=== PATIENT | male | born 1975 | race Caucasian/White ===

== ENCOUNTER 2017-12-18 21:24 | Emergency (ER) | payer OTHER ==
[~2017-12-18] VITALS: Ht 172.7 cm; Wt 80.7 kg
[~2017-12-18 21:24] MED LIST: IBUPROFEN 800800 MG PO; ULTRAM 50MG TAB50 MG PO
[2017-12-18] MEDS ORDERED: MEDROLDOSEPACK PO (21:47)
[2017-12-18 22:01] VITALS: BP 130/65
== END 2017-12-18 22:02 | disposition home or self-care (01) ==
LOC: M.ERS 21:24
DX: L23.7 Allergic contact dermatitis due to plants, except food (principal)

== ENCOUNTER 2020-02-09 10:11 | Emergency (ER) | payer OTHER ==
[~2020-02-09] VITALS: Ht 172.7 cm; Wt 79.4 kg
[~2020-02-09 10:11] MED LIST changes: +MEDROLDOSEPACK PO
[2020-02-09] MEDS ORDERED: PREDNISONE 20 M20 M1 PO (11:02)
[2020-02-09 11:09] VITALS: BP 138/72
== END 2020-02-09 11:09 | disposition home or self-care (01) ==
LOC: M.ERS 10:11
DX: L25.9 Unspecified contact dermatitis, unspecified cause (principal)

== ENCOUNTER 2021-02-08 12:42 | Emergency (ER) | payer OTHER ==
[~2021-02-08] VITALS: Ht 172.7 cm; Wt 81.7 kg
[~2021-02-08 12:42] MED LIST changes: +PREDNISONE 20 M20 M1 PO
[2021-02-08 14:23] VITALS: BP 150/86
== END 2021-02-08 14:27 | disposition home or self-care (01) ==
LOC: M.ERS 12:42
DX: L25.8 Unspecified contact dermatitis due to other agents (principal)